=== PATIENT | male | born 2000 | race Hispanic/Latino ===

== ENCOUNTER 2023-09-05 22:27 | Emergency (ER) | payer OTHER ==
[~2023-09-05] VITALS: Ht 188 cm; Wt 99.8 kg
[2023-09-05] MEDS: ACETAMINOPHEN 325 MG TAB PO ONE (22:49)
[2023-09-05] MEDS: IBUPROFEN 600 MG TABLET PO ONE (22:50)
[2023-09-05] MEDS: ACETAMINOPHEN 325 MG TAB ONE (22:50)
[2023-09-05] MEDS: IBUPROFEN 600 MG TABLET ONE (22:50)
[2023-09-05] MEDS: [UNRECOGNIZED DRUG - OTHER] IV ONE (22:52)
[2023-09-05 22:56] LABS: BASOPHILS # (AUTO) 0.03 K/uL (0.00-0.20); BASOPHILS % (AUTO) 0.4 % (0.0-5.0); HEMATOCRIT 36.6 % (42-54); IMMATURE GRANULOCYTE ABSOLUTE 0.06 K/uL (0-1); LYMPHOCYTES % (AUTO) 13.4 % (21.0-51.0); MEAN CORPUSCULAR HEMOGLOBIN 28.6 pg (27.0-33.0); MEAN CORPUSCULAR HGB CONC 35.8 g/dL (32.0-36.0); MEAN CORPUSCULAR VOLUME 79.9 fL (80-100); MONOCYTES # (AUTO) 0.4 K/uL (0.1-1.0); MONOCYTES % (AUTO) 5.9 % (3.0-13.0); NEUTROPHILS # (AUTO) 5.7 K/uL (1.8-7.7); NEUTROPHILS % (AUTO) 79.5 % (40.0-77.0); PLATELET COUNT (AUTO) 133 K/uL (130-400); RED BLOOD CELL COUNT(AUTO) 4.58 MIL/uL (4.50-6.20); RED CELL DISTRIBUTION WIDTH 12.3 % (11.0-15.5); WHITE BLOOD COUNT (AUTO) 7.2 K/uL (4.8-10.8)
[2023-09-05 23:05] LABS: RAPID GROUP A STREP negative (NEGATIVE)
[2023-09-05 23:06] LABS: SARS-CoV-2, RNA, NAAT NEGATIVE SARS CoV-2 (NEGATIVE)
[2023-09-05 23:07] LABS: CREATININE 1.2 mg/dL (0.5-1.5); POTASSIUM 3.2 mmol/L (3.5-5.1)
[2023-09-05 23:12] LABS: ALBUMIN 1.6 g/dL (3.5-5.0); BILIRUBIN,TOTAL 0.9 mg/dL (0.2-1.0); TOTAL PROTEIN, SERUM 6.1 g/dL (6.0-8.3)
[2023-09-05 23:17] LABS: INFLUENZA TYPE A Negative For Type A (NEGATIVE); INFLUENZA TYPE B Negative For Type B (NEGATIVE)
[2023-09-05 23:41] LABS: APPEARANCE,URINE CLEAR (CLEAR); BILIRUBIN,URINE NEGATIVE (NEGATIVE); COLOR,URINE YELLOW (YELLOW); GLUCOSE, URINE (UA) 30 mg/dL (NEGATIVE); KETONES,URINE 5 mg/dL (NEGATIVE); LEUKOCYTE ESTERASE ,URINE NEGATIVE Leu/uL (NEGATIVE); NITRATE,URINE NEGATIVE (NEGATIVE); OCCULT BLOOD,URINE LARGE (NEGATIVE); PROTEIN,URINE 600 mg/dL (NEGATIVE)
[2023-09-05 23:44] LABS: ADD UA MICROSCOPIC YES
[2023-09-05 23:54] LABS: BACTERIA,URINE None Seen /HPF (None Seen); MUCUS,URINE Rare LPF (None Seen); SQUAMOUS EPITHELIAL CELL,UR Rare /HPF (0-2)
[2023-09-06 02:19] VITALS: TEMP 99
[2023-09-06 02:20] VITALS: BP 127/78; PULSE 90; RESP 18; O2SAT 99
[2023-09-06] MEDS ORDERED: METO-296 PO (02:24)
== END 2023-09-06 03:09 | disposition home or self-care (01) ==
LOC: EDH 22:27
DX: B34.9 Viral infection, unspecified (principal); R31.29 Other microscopic hematuria; E83.51 Hypocalcemia; E87.6 Hypokalemia; E87.1 Hypo-osmolality and hyponatremia; E11.9 Type 2 diabetes mellitus without complications; Z20.822 Contact with and (suspected) exposure to COVID-19
CPT/HCPCS: 99284; 96360; 87635; 96361; 80053; 83690; 85025; 87040 ×2; 87088; 87880; 87804 ×2; 83605; 81001; 36415; J7030